=== PATIENT | female | born 2005 | race Hispanic/Latino ===

== ENCOUNTER 2024-10-18 08:04 | Inpatient (IN) | payer OTHER ==
[2024-10-19] MEDS ORDERED: Bupivacaine 0.25% HCL 30 ML VIAL ONE (08:00)
[2024-10-19] MEDS ORDERED: Methylergonovine 0.2 MG/ML VIAL IM PRN (23:14)
[2024-10-19] MEDS ORDERED: Tranexamic Acid 1,000 MG/10 ML VIAL IVP PRN (23:14)
[2024-10-19] MEDS ORDERED: Acetaminophen 500 MG TAB PO PRN (23:14)
[2024-10-19] MEDS ORDERED: Carboprost 250 MCG/ML AMP IM PRN (23:14)
[2024-10-19] MEDS ORDERED: hydrALAZINE 20 MG/ML VIAL SLOW IVP PRN (23:14)
[2024-10-19] MEDS ORDERED: Ondansetron PF 4 MG/2 ML Vial IVP PRN (23:14)
[2024-10-19] MEDS ORDERED: Ibuprofen 800 MG TAB PO PRN (23:14)
[2024-10-19] MEDS ORDERED: Lidocaine 1% (PF) 30 ML VIAL SC PRN (23:14)
[2024-10-19] MEDS ORDERED: Diphenoxylate HCl/Atropine Tablet PO PRN (23:14)
[2024-10-19] MEDS ORDERED: Oxytocin 30 units/NS 500 ML 500 ML IV SCH ×2 (23:15)
[2024-10-19 23:26] VITALS: BMI 58.0
[2024-10-19 23:45] LABS: Hematocrit 34.8 % (34.9-44.5); Hemoglobin 11.3 g/dL (12.0-15.5); Mean Corpuscular Hemoglobin 26.3 pg (27.0-33.0); Mean Corpuscular Volume 80.9 fL (81.6-98.3); Platelet Count 242 10x3/uL (150-450); Red Blood Cell (RBC) Count 4.30 10x6/uL (3.90-5.03); White Blood Cell (WBC) Count 11.28 10x3/uL (3.5-10.5)
[2024-10-20 00:21] LABS: Hep B Surf Ag - L&D Non-Reactive S/CO (NonReactive)
[2024-10-20 00:22] LABS: Syphilis Antibody Index 0.15 S/CO (<1.00 Non-Reactive)
[2024-10-20] MEDS: fentaNYL/Ropivacaine Epidural 100 ML ONE (14:19)
[2024-10-20] MEDS ORDERED: Ondansetron PF 4 MG/2 ML Vial IVP PRN (15:24)
[2024-10-20] MEDS ORDERED: Acetaminophen 325 MG TAB PO PRN (15:24)
[2024-10-20] MEDS ORDERED: diphenhydrAMINE 50 MG/ML VIAL IVP PRN (15:24)
[2024-10-21] MEDS: fentaNYL 2 mcg/Ropivacaine 0.2% Epidural 100 ML CADD EPIDURAL SCH (02:26)
[2024-10-21] MEDS: CEFAZOLIN 2 GM VIAL ONE (04:45)
[2024-10-21] MEDS: CEFAZOLIN 1 GM VIAL ONE (04:47)
[2024-10-21] MEDS ORDERED: Meperidine HCl/PF 25 MG (1 mL) VIAL SLOW IVP PRN (05:53)
[2024-10-21] MEDS ORDERED: Ondansetron PF 4 MG/2 ML Vial IVP PRN ×3 (05:53→10:04)
[2024-10-21] MEDS ORDERED: diphenhydrAMINE 50 MG/ML VIAL IVP PRN (05:54)
[2024-10-21] MEDS ORDERED: Ketorolac Tromethamine 30 MG (1 mL) VIAL IVP PRN (05:54)
[2024-10-21] MEDS: Diphenoxylate HCl/Atropine Tablet PO PRN (06:27)
[2024-10-21] MEDS: Ketorolac Tromethamine 30 MG (1 mL) VIAL IVP SCH ×2 (07:11→12:18)
[2024-10-21] MEDS ORDERED: Ibuprofen 800 MG TAB PO PRN (09:18)
[2024-10-21] MEDS ORDERED: Lanolin Ointment 7 GM TUBE TOP PRN (10:04)
[2024-10-21] MEDS ORDERED: Bisacodyl 10 MG SUPP PR PRN (10:04)
[2024-10-21] MEDS ORDERED: hydrALAZINE 20 MG/ML VIAL SLOW IVP PRN (10:04)
[2024-10-21] MEDS ORDERED: diphenhydrAMINE 25 MG CAP PO PRN (10:04)
[2024-10-21] MEDS ORDERED: Meperidine HCl/PF 25 MG (1 mL) VIAL IM PRN (10:04)
[2024-10-21] MEDS ORDERED: Simethicone Chewable 80 MG TAB PO PRN (10:04)
[2024-10-21] MEDS: Azithromycin 500 MG VIAL ONE (10:07)
[2024-10-21] MEDS: Erythromycin Base 0.5% Oint 1 GM TUBE ONE (10:07)
[2024-10-21] MEDS: Hepatitis B Vaccine 10 MCG/0.5 ML SYR ONE (10:07)
[2024-10-21] MEDS: PHENYLEPHRINE-NS 100 MCG/ML 10 ML SYRINGE ONE (10:09)
[2024-10-21] MEDS: Famotidine/PF 20 mg/2ml Vial ONE (10:09)
[2024-10-21] MEDS: Oxytocin 10 UNITS/ML VIAL ONE (10:09)
[2024-10-21] MEDS: Methylergonovine 0.2 MG/ML VIAL ONE (10:09)
[2024-10-21] MEDS: Lidocaine 2% MPF 10 ML AMP (For Epidural Use) ONE (10:09)
[2024-10-21] MEDS: Ondansetron PF 4 MG/2 ML Vial ONE (10:09)
[2024-10-21] MEDS: Ferrous Sulfate 325 MG TAB PO SCH (11:06)
[2024-10-21] MEDS: Boostrix 0.5 ML (Tdap) VIAL (>/=7 yrs of age) IM ONE (12:22)
[2024-10-21] MEDS ORDERED: Diphenoxylate HCl/Atropine Tablet PO PRN (18:00)
[2024-10-21] MEDS: HYDROcodone/Acetaminophen 5/325 mg Tablet PO PRN (18:03)
[2024-10-22] MEDS: Ferrous Sulfate 325 MG TAB PO SCH (01:37)
[2024-10-22 05:56] LABS: Hematocrit 29.9 % (34.9-44.5); Hemoglobin 9.5 g/dL (12.0-15.5); Mean Corpuscular Hemoglobin 26.5 pg (27.0-33.0); Mean Corpuscular Volume 83.3 fL (81.6-98.3); Platelet Count 177 10x3/uL (150-450); Red Blood Cell (RBC) Count 3.59 10x6/uL (3.90-5.03); White Blood Cell (WBC) Count 10.15 10x3/uL (3.5-10.5)
[2024-10-22] MEDS: Ibuprofen 800 MG TAB PO SCH (13:39)
[2024-10-24] MEDS: HYDROcodone/Acetaminophen 5/325 mg Tablet PO PRN (20:46)
[2024-10-25 08:42] VITALS: BP 118/58; TEMP 97.9
== END 2024-10-25 11:00 | disposition home or self-care (01) | DRG 788 ==
LOC: CSHLD 10-19 19:48 → CSHPP 10-21 09:32
PROVIDERS: ADMIT Family Medicine; ATTEND Family Medicine
PROC: 10907ZC Drainage of Amniotic Fluid, Therapeutic from Products of Conception, Via Natural or Artificial Opening (ICD-10-PCS; 2024-10-19)
PROC: 10H07YZ Insertion of Other Device into Products of Conception, Via Natural or Artificial Opening (ICD-10-PCS; 2024-10-19)
PROC: 10D00Z1 Extraction of Products of Conception, Low, Open Approach (ICD-10-PCS; principal; 2024-10-21)
DX: O48.0 Post-term pregnancy (principal); O99.214 Obesity complicating childbirth; E66.01 Morbid (severe) obesity due to excess calories; O62.1 Secondary uterine inertia; Z3A.40 40 weeks gestation of pregnancy; Z37.0 Single live birth
CPT/HCPCS: 36415; 51702; 85027; 86780; 86850; 86900; 86901; 87340; J0665; J0690; J1308; J1885; J2210; J2270; J2405; J2590; J3010